=== PATIENT | female | born 1955 | race Caucasian/White ===

== ENCOUNTER 2019-11-03 10:04 | Outpatient (CLI) | payer BC, SELFPAY ==
--- NOTE | ~2019-11-03 | MM_ITS ---
EXAMINATION: MM screening дмитрий BI w parveen HISTORY: Screening mammogram TECHNIQUE: Craniocaudal and mediolateral oblique 3-D tomosynthesis images were obtained and synthetic 2-D images were generated. CAD analysis was submitted and interpreted. COMPARISON: 11/03/2018, 05/24/2017, 01/08/2016 bilateral implant digital screening mammogram examinations BREAST PARENCHYMAL COMPOSITION: The breasts are almost entirely fatty. FINDINGS: There is no evidence of suspicious mass, calcification, or architectural distortion to sugg est malignancy in either breast. There has been no suspicious interval change. IMPRESSION: 1. No mammographic evidence of malignancy. 2. Recommend routine screening mammography in one year. BI-RADS Category 1: Negative Reviewed, dictated and finalized at location A. [employer]
== END 2019-11-03 10:05 | disposition home or self-care (01) ==
LOC: ANHIMG 10:08
PROVIDERS: Visit Provider Obstetrics & Gynecology
DX: Z12.31 Encounter for screening mammogram for malignant neoplasm of breast (principal)
CPT/HCPCS: 77063; 77067

== ENCOUNTER 2020-04-29 17:05 | Emergency (ER) | payer BC, SELFPAY ==
[2020-04-29 17:44] VITALS: BP 145/84; PULSE 86; RESP 16; TEMP 36.5; O2SAT 96
--- NOTE | 2020-04-29 20:45 | WC.ED.TRAUMA ---
HPI - Trauma General Chief Complaint: Extremity Injury, Upper Stated Complaint: left hand laceration Time Seen by Provider: 04/29/20 19:59 Source: patient and family Mode of arrival: ambulatory Limitations: no limitations History of Present Illness HPI narrative: Patient is a 64-year-old female who presents with a laceration of the left palm that occurred just prior to arrival was using a kitchen knife when she accidentally stabbed herself in the thenar eminence patient notes aching pain worse with touch and activity patient denies radicular symptoms or paresthesias patient is unsure as to her tetanus status patient presents per private vehicle shortly after the injury patient resting comfortably in the room in no distress upon arrival Related Data Allergies Allergy/AdvReac Type Severity Reaction Status Date / Time No Known Allergies Allergy Verified 04/29/20 20:21 Review of Systems Review of Systems: All systems reviewed & are unremarkable except as noted in HPI and below PMFSH Family History Family History (Updated 05/31/14 @ 07:13 by DOCTOR UNKNOWN) Mother Family history of osteoporosis Family history of osteoarthritis Family history of arthritis Family history of scoliosis Sibling Family history of osteoporosis Family history of arthritis Other Cerebrovascular accident Diabetes mellitus Family history of allergic disorder Family history of cardiovascular disease Family history of thyroid disease Social History Social History Smoking status: Never smoker Alcohol intake: current Exam Narrative: Exam Narrative: GENERAL: Well-appearing, well-nourished, and in no acute distress. HEAD: Normocephalic, atraumatic. EYES: PERRLA and EOMI. ENT: Nares clear, no rhinorrhea or epistaxis. Mucous membranes moist. EXTREMITIES: Normal range of motion. No edema. SKIN: Warm, dry, no rash. 1 cm laceration thenar eminence NEURO: No focal deficits. Alert and oriented x3. Neurovascularly intact PSYCH: Normal mood and affect. Course Course Emergency Course: Patient in the room in no distress with laceration of the left palm Vital Signs Vital signs: Vital Signs Temperature 97.7 F 04/29/20 17:44 Pulse Rate 86 04/29/20 17:44 Respiratory Rate 16 04/29/20 17:44 Blood Pressure 145/84 H 04/29/20 17:44 Pulse Oximetry 96 07/27/20 17:44 Temperature 97.7 F 04/29/20 17:44 Pulse Rate 86 04/29/20 17:44 Respiratory Rate 16 04/29/20 17:44 Blood Pressure 145/84 H 04/29/20 17:44 Pulse Oximetry 96 04/29/20 17:44 Procedures Laceration Laceration 1: Date: 04/29/20 Time: 20:48 Site: upper extremity Side (If applicable): left Size (cm): 1 Description: linear Local Anesthetic: lidocaine 1% ====== Skin Level ====== Skin layer closed with: boom Number of sutures: 1 ====== Subcutaneous Layer ====== ====== Muscle Layer ====== ====== Tendon Layer ====== Dressing: Antibiotic ointment nonadhesive 4 x 4 and Coban placed post procedure MDM - Trauma MDM Narrative Medical decision making narrative: Patients injury or pain is consistent with musculoskeletal etiology. No signs of neurological or vascular compromise on exam. Compartments and tisues are soft without signs of compartment syndrome. Pain is felt appropriate for further evaluation on an outpatient basis. Discharge Plan Discharge Clinical Impression: Hand laceration Patient Disposition: Home, Self-Care Condition: Stable Instructions: Antibiotic Form, Laceration (ED) Additional Instructions: Keep wound clean and dry. Do not soak, take baths, or swim until wound is completely healed. If any signs of infection such as redness, swelling, increasing pain, drainage of purulent discharge, streaks up your extremity develop, seek medical attention immediately. Followup with your
[2020-04-29] MEDS: TETANUS,DIPHTHERIA,AC PERTUSSIS ADULT (0.5 ML) BOOSTRIX IM (21:05)
[2020-04-29 21:12] VITALS: BP 136/84; PULSE 87; RESP 16; O2SAT 96
[2020-04-29 22:02] VITALS: BP 136/84; PULSE 87; RESP 18; O2SAT 96
== END 2020-04-29 21:30 | disposition home or self-care (01) ==
PROVIDERS: Emergency Provider Emergency Medicine; PCP Emergency Medicine
DX: S61.412A Laceration without foreign body of left hand, initial encounter (principal); Z23 Encounter for immunization; W26.0XXA Contact with knife, initial encounter
CPT/HCPCS: 12001; 90471; 90715; 99282

== ENCOUNTER 2021-04-17 10:45 | Outpatient (CLI) | payer OTHER, SELFPAY ==
--- NOTE | ~2021-04-17 | MM_ITS ---
EXAMINATION: MM screening дмитрий BI w parveen HISTORY: Screening mammogram, family history of breast cancer in her sister. TECHNIQUE: Craniocaudal and mediolateral oblique 3-D tomosynthesis images were obtained and synthetic 2-D images were generated. CAD analysis was submitted and interpreted. COMPARISON: 11/03/2019, 11/03/2018, 05/24/2017 BREAST PARENCHYMAL COMPOSITION: The breasts are almost entirely fatty. FINDINGS: There is no evidence of suspicious mass, calcification, or architectural distortion to sugg est malignancy in either breast. There has been no suspicious interval change. IMPRESSION: 1. No mammographic evidence of malignancy. 2. Recommend routine screening mammography in one year. BI-RADS Category 1: Negative Reviewed, dictated and finalized at location A.
== END 2021-04-17 10:46 | disposition home or self-care (01) ==
LOC: ANHIMG 10:50
PROVIDERS: PCP Obstetrics & Gynecology; Visit Provider Obstetrics & Gynecology
DX: Z12.31 Encounter for screening mammogram for malignant neoplasm of breast (principal)
CPT/HCPCS: 77063; 77067

== ENCOUNTER 2022-05-18 10:35 | Outpatient (CLI) | payer OTHER, SELFPAY ==
--- NOTE | ~2022-05-18 | MM_ITS ---
EXAMINATION: MM screening дмитрий BI w parveen HISTORY: Screening mammogram TECHNIQUE: Craniocaudal and mediolateral oblique 3-D tomosynthesis images were obtained and synthetic 2-D images were generated. CAD analysis was submitted and interpreted. COMPARISON: 04/17/2021, 11/03/2019 bilateral screening mammogram examinations BREAST PARENCHYMAL COMPOSITION: The breasts are almost entirely fatty. FINDINGS: Breast implants were removed in 2019 according to clinical history. There is no evidence of suspicious mass, calcification, or architectural distortion to suggest malignancy in either breast. There has been no suspicious interval change. IMPRESSION: 1. No mammographic evidence of malignancy. 2. Recommend routine screening mammography in one year. BI-RADS Category 1: Negative Reviewed, dictated and finalized at location A.
== END 2022-05-18 10:36 | disposition home or self-care (01) ==
LOC: ANHIMG 10:37
PROVIDERS: Visit Provider Obstetrics & Gynecology
DX: Z12.31 Encounter for screening mammogram for malignant neoplasm of breast (principal)
CPT/HCPCS: 77063; 77067

== ENCOUNTER 2023-04-05 11:14 | Outpatient (CLI) | payer BC, SELFPAY ==
[2023-04-05 17:37] LABS: Creatine Kinase 71 U/L (30-135)
[2023-04-05 17:41] LABS: Rheumatoid Factor < 12.0 IU/ML (<12)
[2023-04-07 11:20] LABS: ANA Cascade Screen Negative (Negative)
[2023-04-07 23:18] LABS: Anti Cyclic Citrullinated Pept <16 Units (<20)
[2023-04-10 22:46] LABS: ANCA Screen Negative (Negative)
[2023-04-30 11:36] LABS: JO-1 AB <11
[2023-04-30 11:37] LABS: MI-2 Alpha Ab <11; MI-2 Beta Ab <11; TIF1 Gamma Ab <11
[2023-04-30 11:38] LABS: NXP-2 AB <11
== END 2023-04-05 11:15 | disposition home or self-care (01) ==
PROVIDERS: Visit Provider Internal Medicine Pulmonary Disease
DX: J84.9 Interstitial pulmonary disease, unspecified (principal); J98.4 Other disorders of lung
CPT/HCPCS: 36415; 82085; 82550; 84182; 86036; 86038; 86200; 86331; 86430; 86606; 86609

== ENCOUNTER 2023-06-03 09:59 | Outpatient (CLI) | payer BC, SELFPAY ==
--- NOTE | ~2023-06-03 | MM_ITS ---
EXAMINATION: MM screening дмитрий BI w parveen HISTORY: Screening mammogram, family history of breast cancer in her sister. TECHNIQUE: Craniocaudal and mediolateral oblique 3-D tomosynthesis images were obtained and synthetic 2-D images were generated. CAD analysis was submitted and interpreted. COMPARISON: 05/18/2022, 04/17/2021, 11/03/2019 BREAST PARENCHYMAL COMPOSITION: The breasts are almost entirely fatty. FINDINGS: No suspicious mass, calcification, or architectural distortion are identified in either shonda ast to suggest malignancy. There has been no suspicious interval change. IMPRESSION: 1. No mammographic evidence of malignancy. 2. Recommend routine screening mammography in one year. BI-RADS Category 1: Negative Reviewed, dictated and finalized at location L.
== END 2023-06-03 10:00 | disposition home or self-care (01) ==
PROVIDERS: Visit Provider Obstetrics & Gynecology
DX: Z12.31 Encounter for screening mammogram for malignant neoplasm of breast (principal)
CPT/HCPCS: 77063; 77067

== ENCOUNTER 2023-06-05 13:34 | Emergency (ER) | payer BC, SELFPAY ==
[2023-06-05 15:18] VITALS: BP 109/67; PULSE 94; RESP 18; TEMP 37.2; O2SAT 100
--- NOTE | 2023-06-05 16:13 | ED.URI ---
HPI - URI/Sore Throat General Chief Complaint: Upper Respiratory Infection Stated Complaint: congestion,headache Time Seen by Provider: 06/05/23 16:02 Source: patient and RN notes reviewed Mode of arrival: ambulatory Limitations: no limitations History of Present Illness HPI Narrative: Patient presents today complaining of 4 day history of fever up to 102.9, headache, congestion, postnasal drip cardiac creased appetite, and fatigue. She has been taking Advil with some relief. She has also been using elderberry syrup and Echinacea. History of asthma. Related Data Home Medications Medication Instructions Recorded Confirmed escitalopram oxalate 10 mg tablet 10 mg PO DAILY 08/05/21 06/05/23 rosuvastatin 40 mg tablet 5 mg PO DAILY 04/05/23 06/05/23 Allergies Allergy/AdvReac Type Severity Reaction Status Date / Time meperidine Allergy Mild NAUSEA AND Verified 06/05/23 15:47 VOMITING Tetanus Vaccines and Toxoid Allergy Unknown . Verified 06/05/23 15:47 Review of Systems Review of Systems: CONSTITUTIONAL: Denies body aches, chills, or sweats.+ fever, fatigue EYES: Denies visual changes, redness, or discharge. ENT: Denies rhinorrhea, sore throat, or otalgia.+ congestion, postnasal drip CARDIOVASCULAR: Denies chest pain, palpitations, or edema. RESPIRATORY: Denies dyspnea.+ cough GASTROINTESTINAL: Denies abdominal pain, nausea, vomiting, or diarrhea.+ decreased appetite GENITOURINARY: Denies dysuria or hematuria. SKIN: Denies rash, itching, or wounds. MUSCULOSKELETAL: Denies back pain, joint pain, or myalgia. NEUROLOGIC: Denies numbness, tingling, or weakness.+ headache PSYCH: Denies depression or anxiety. [facility] Past Medical History Medical History Asthma GERD (gastroesophageal reflux disease) High cholesterol S/p breast implant removal Surgical History Surgical History History of History of exploratory laparotomy S/P abdominoplasty S/P dilatation and curettage S/P hip replacement S/P umbilical hernia repair, follow-up exam Family History Family History Mother Family history of osteoporosis Family history of osteoarthritis Family history of arthritis Family history of scoliosis Cardiac arrest Sibling Family history of osteoporosis Family history of arthritis Father Family history of blood dyscrasia, Onset Age: 76 Patient's father is Mother Family history of osteoporosis Sibling Patient's sister is in good health Patient's brother is in good health Breast cancer Unknown Diabetes mellitus Cerebrovascular accident Cancer Allergy Other Family history of allergic disorder Family history of cardiovascular disease Family history of thyroid disease Social History Social History Smoking status: Former smoker Tobacco type: cigarettes Smoking end date: 10/04/85 Alcohol intake: current Comments At time of signature, I have reviewed and agree with nursing past medical, surgical, social and family history unless otherwise noted. Please see nursing chart for further information. There is no relevant family history pertinent to the presenting complaint Exam Narrative: GENERAL: Mildly ill appearing, well-nourished, and in no acute distress. HEAD: Normocephalic, atraumatic. EYES: EOMI. No redness or drainage. Conjunctivae normal. ENT: Mucous membranes pink and moist. Nares congested with rhinorrhea. TMs normal bilaterally. Throat normal. Uvula midline. NECK: Normal AROM. Supple. No lymphadenopathy. CHEST: No respiratory distress. Clear to auscultation. HEART: Regular rate and rhythm. No murmur appreciated. EXTREMITIES: Normal range of motion. No edema. SKIN: Warm, dry, no rash. Capillary r
== END 2023-06-05 16:24 | disposition home or self-care (01) ==
PROVIDERS: Emergency Provider Nurse Practitioner
DX: U07.1 COVID-19 (principal); Z87.891 Personal history of nicotine dependence; J45.909 Unspecified asthma, uncomplicated; K21.9 Gastro-esophageal reflux disease without esophagitis; E78.00 Pure hypercholesterolemia, unspecified
CPT/HCPCS: 87426; 87804; 99213; C9803; G0463

== ENCOUNTER 2023-07-28 12:50 | Outpatient (CLI) | payer BC, SELFPAY ==
--- NOTE | 2023-07-29 09:06 | WPDPFTINT ---
PFT Procedure Performed PFT Procedure Performed Spirometry with Pre/Post Bronchodilator Plethysmography (Lung Vol) Diffusing Cap (DLCO) Flow Vol Loop PFT Interpretation Lung volumes were measured with the body plethysmography method. Lung volumes are unremarkable. Spirometry showed normal expiratory flow rates and a normal FEV1 to FVC ratio of 74%. No post bronchodilator study carried out. Lung diffusion capacity is within the normal range at 82% predicted. The flow-volume loop is unremarkable Impression: Spirometry, lung volumes, and lung diffusion capacity all within the normal range.
== END 2023-07-28 12:51 | disposition home or self-care (01) ==
LOC: ANHPFT 12:50
DX: J45.40 Moderate persistent asthma, uncomplicated (principal)
CPT/HCPCS: 94375; 94726; 94729

== ENCOUNTER 2024-06-16 14:03 | Outpatient (CLI) | payer BC, SELFPAY ==
--- NOTE | ~2024-06-16 | MM_ITS ---
EXAMINATION: MM screening дмитрий BI w parveen HISTORY: Screening mammogram, family history of breast cancer in her sister. TECHNIQUE: Craniocaudal and mediolateral oblique 3-D tomosynthesis images were obtained and synthetic 2-D images were generated. CAD analysis was submitted and interpreted. COMPARISON: 06/03/2023, 05/18/2022, 04/17/2021, 11/03/2019 BREAST PARENCHYMAL COMPOSITION:Not Dense. The breasts are almost entirely fatty FINDINGS: No suspicious mass, calcification, or architectural distortion are identified in either shonda ast to suggest malignancy. There has been no suspicious interval change. IMPRESSION: No mammographic evidence of malignancy. Recommend routine screening mammography in one year. BI-RADS Category 1: Negative Reviewed, dictated and finalized at location .
== END 2024-06-16 14:04 | disposition home or self-care (01) ==
LOC: ANHIMG 14:05
PROVIDERS: Visit Provider Obstetrics & Gynecology
DX: Z12.31 Encounter for screening mammogram for malignant neoplasm of breast (principal)
CPT/HCPCS: 77063; 77067